=== PATIENT | female | born 1940 | race Caucasian/White ===

== ENCOUNTER → 2017-03-22 | Outpatient (CLI) | payer MEDICARE, OTHER ==
[~2017-03-22] MED LIST: REGADENOSON 0.4 MG/5 ML SYRINGE ONE
== END | disposition home or self-care (01) ==
LOC: CFH 07:52
PROVIDERS: ATTEND Internal Medicine Cardiovascular Disease
DX: I25.10 Atherosclerotic heart disease of native coronary artery without angina pectoris (principal); I10 Essential (primary) hypertension
CPT/HCPCS: 78452; 93017; A9502; J2785

== ENCOUNTER 2018-01-24 09:06 | Observation (INO) | payer MEDICARE, OTHER ==
[~2018-01-24] VITALS: Ht 161.3 cm; Wt 80.0 kg
[2018-01-24 09:53] LABS: BASOPHILS # (AUTO) 0.01 x10^3/uL (0-0.1); BASOPHILS % (AUTO) 0 % (0-1); EOSINOPHILS # (AUTO) 0.12 x10^3/uL (0-0.4); EOSINOPHILS % (AUTO) 2 % (1-7); LYMPHOCYTES # (AUTO) 1.15 x10^3/uL (1-3.4); LYMPHOCYTES % (AUTO) 15 % (22-44); MD NO; MEAN CORPUSCULAR HEMOGLOBIN 30.4 pg (27.0-34.8); MEAN CORPUSCULAR HGB CONC 33.7 g/dL (32.4-35.8); MEAN CORPUSCULAR VOLUME 90.1 fL (80-100); MONOCYTES % (AUTO) 9 % (2-9); NEUTROPHILS # (AUTO) 5.46 x10^3/uL (1.8-6.8); NEUTROPHILS % (AUTO) 73 % (42-75); PLATELET COUNT 172 x10^3/uL (130-400)
[2018-01-24] MEDS ORDERED: NITROGLYCERIN SINGLE TAB 0.4 MG SL PRN (10:00)
[2018-01-24] MEDS ORDERED: SODIUM CHLORIDE FLUSH 10ML SYR IVF ONE (10:00)
[2018-01-24] MEDS ORDERED: ASPIRIN 325 MG TABLET PO ONE (10:00)
[2018-01-24] MEDS ORDERED: ASPIRIN 81 MG TABLET CHEW PO ONE (10:00)
[2018-01-24 10:06] LABS: ALANINE AMINOTRANSFERASE 29 U/L (12-78); ALBUMIN 3.8 g/dL (3.4-5.0); ANION GAP 9 mmol/L (5-15); CALCIUM 8.6 mg/dL (8.5-10.1); CHLORIDE 105 mmol/L (98-107); CREATININE 1.24 mg/dL (0.55-1.02)
[2018-01-24] MEDS ORDERED: ATOR40TA78 PO (10:07)
[2018-01-24] MEDS ORDERED: POTA99TA24 PO (10:07)
[2018-01-24] MEDS ORDERED: DILT120T4 PO (10:07)
[2018-01-24] MEDS ORDERED: KRIL1CAP31 PO (10:07)
[2018-01-24] MEDS ORDERED: ATOR-2 PO (10:07)
[2018-01-24] MEDS ORDERED: ESOM40CA PO (10:07)
[2018-01-24] MEDS ORDERED: hydrodiuril PO (10:07)
[2018-01-24] MEDS ORDERED: HYDR-3307 PO (10:07)
[2018-01-24] MEDS ORDERED: CALC-534 PO (10:07)
[2018-01-24] MEDS ORDERED: BREX2TAB PO (10:07)
[2018-01-24] MEDS ORDERED: PREG50CA PO (10:07)
[2018-01-24] MEDS ORDERED: DESV100T PO (10:07)
[2018-01-24] MEDS ORDERED: l-thyroxine PO (10:07)
[2018-01-24] MEDS ORDERED: ASPI-496 PO (10:07)
[2018-01-24] MEDS ORDERED: TOPI25TA8 PO (10:07)
[2018-01-24] MEDS ORDERED: TOPI100P PO (10:07)
[2018-01-24 10:10] LABS: ALKALINE PHOSPHATASE 58 U/L (45-117); BILIRUBIN,TOTAL 0.4 mg/dL (0.2-1.0); TOTAL PROTEIN 7.8 g/dL (6.4-8.2); TROPONIN I < 0.015 ng/mL (0.000-0.045)
[2018-01-24] MEDS ORDERED: NITROGLYCERIN SINGLE TAB 0.4 MG SL ONE ×2 (10:13→11:19)
[2018-01-24] MEDS ORDERED: ASPIRIN 81 MG TABLET CHEW ONE ×2 (10:13→10:17)
[2018-01-24 10:22] LABS: INTERNATIONAL NORMALIZED RATIO 1.01 (0.93-1.1); PROTHROMBIN TIME 10.5 Seconds (9.6-11.5)
[2018-01-24 10:45] LABS: D-DIMER 0.53 ug/mlFEU (0.00-0.52)
[2018-01-24] MEDS ORDERED: OMNIPAQUE 350 MG/ML, 100ML BOTTLE ONE (12:20)
[2018-01-24] MEDS ORDERED: ONDANSETRON 2MG/ML, 2ML IVPush PRN (14:00)
[2018-01-24] MEDS ORDERED: HYDROcodone/APAP 5/325 TABLET PO PRN (14:00)
[2018-01-24] MEDS ORDERED: LABETALOL 5MG/ML, 20ML IVPush PRN (14:00)
[2018-01-24] MEDS ORDERED: POLYETHYLENE GLYCOL 17 GM PACKET PO PRN (14:00)
[2018-01-24] MEDS ORDERED: ONDANSETRON ODT 4 MG PO PRN (14:00)
[2018-01-24 14:37] LABS: TROPONIN I < 0.015 ng/mL (0.000-0.045)
[2018-01-24 14:40] LABS: FREE T4 (FREE THYROXINE) 1.16 ng/dL (0.76-1.46)
[2018-01-24 14:41] VITALS: BP 114/73
[2018-01-24] MEDS ORDERED: ENOXAPARIN 40 MG/0.4 ML SQ SCH (15:00)
[2018-01-24] MEDS ORDERED: CALC1CAP8 PO (15:02)
[2018-01-24] MEDS ORDERED: LEVO50TA5 PO (15:02)
[2018-01-24] MEDS ORDERED: POTA20TA14 PO (15:02)
[2018-01-24] MEDS ORDERED: ALBUTEROL/IPRATROPIUM 2.5MG/0.5MG, 3 ML ONE (17:26)
[2018-01-24] MEDS ORDERED: POTASSIUM CHLORIDE 20 MEQ TAB.ER.PRT PO SCH (18:00)
[2018-01-24] MEDS ORDERED: NITROGLYCERIN 0.4 MG BOTTLE (25 TABS) SL PRN ×2 (18:30→19:00)
[2018-01-24 18:40] VITALS: BP 111/56
[2018-01-24 18:50] VITALS: BP 96/60
[2018-01-24 18:59] VITALS: BP 119/67
[2018-01-24] MEDS ORDERED: NITROGLYCERIN 0.4 MG/SPRAY SL PRN (19:00)
[2018-01-24 20:15] LABS: TROPONIN I < 0.015 ng/mL (0.000-0.045)
[2018-01-24] MEDS ORDERED: TOPIRAMATE 25 MG TABLET PO SCH ×2 (21:00)
[2018-01-24] MEDS ORDERED: HYDROcodone/APAP 10/325 MG TABLET PO SCH (21:00)
[2018-01-24] MEDS ORDERED: PREGABALIN 25 MG CAPSULE PO SCH (21:00)
[2018-01-24] MEDS ORDERED: ASPIRIN 81 MG TABLET EC PO SCH (21:00)
[2018-01-24] MEDS ORDERED: ATORVASTATIN 40 MG TABLET PO SCH (21:00)
[2018-01-24] MEDS ORDERED: Desvenlafaxine Succinate** (Pristiq Er**) 100 MG) HOMEMEDPO SCH (21:00)
[2018-01-24] MEDS: TOPIRAMATE 25 MG TABLET PO SCH (21:51)
[2018-01-25 01:15] VITALS: BP 116/77
[2018-01-25 04:59] LABS: BASOPHILS # (AUTO) 0.03 x10^3/uL (0-0.1); BASOPHILS % (AUTO) 0 % (0-1); EOSINOPHILS # (AUTO) 0.18 x10^3/uL (0-0.4); EOSINOPHILS % (AUTO) 2 % (1-7); LYMPHOCYTES # (AUTO) 1.98 x10^3/uL (1-3.4); LYMPHOCYTES % (AUTO) 26 % (22-44); MD NO; MEAN CORPUSCULAR HEMOGLOBIN 30.4 pg (27.0-34.8); MEAN CORPUSCULAR HGB CONC 33.7 g/dL (32.4-35.8); MEAN CORPUSCULAR VOLUME 90.2 fL (80-100); MEAN PLATELET VOLUME 9.2 fL (7.4-10.4); MONOCYTES # (AUTO) 0.76 x10^3/uL (0.2-0.8); MONOCYTES % (AUTO) 10 % (2-9); NEUTROPHILS % (AUTO) 61 % (42-75); PLATELET COUNT 171 x10^3/uL (130-400); RED BLOOD COUNT 4.63 x10^6/uL (3.82-5.3); RED CELL DISTRIBUTION WIDTH 14.3 % (9.6-15.2)
[2018-01-25 05:11] LABS: ALBUMIN 3.6 g/dL (3.4-5.0); ANION GAP 7 mmol/L (5-15); CHLORIDE 107 mmol/L (98-107)
[2018-01-25 05:17] LABS: ALANINE AMINOTRANSFERASE 26 U/L (12-78); ALKALINE PHOSPHATASE 52 U/L (45-117); BILIRUBIN,TOTAL 0.4 mg/dL (0.2-1.0); CREATININE 1.18 mg/dL (0.55-1.02); TOTAL PROTEIN 7.1 g/dL (6.4-8.2)
[2018-01-25] MEDS ORDERED: LEVOTHYROXINE 25 MCG TABLET PO SCH (06:00)
[2018-01-25] MEDS ORDERED: LEVOTHYROXINE 50 MCG TABLET PO SCH (06:00)
[2018-01-25 06:41] VITALS: BP 127/80
[2018-01-25] MEDS ORDERED: PANTOPROZOLE 40MG TABLET PO SCH (07:30)
[2018-01-25] MEDS ORDERED: REGADENOSON 0.4 MG/5 ML SYRINGE ONE (07:33)
[2018-01-25] MEDS ORDERED: DILTIAZEM 120 MG TABLET PO SCH (09:00)
[2018-01-25] MEDS ORDERED: SENNA/DOCUSATE TABLET PO SCH (09:00)
[2018-01-25] MEDS ORDERED: HYDROcodone/APAP 10/325 MG TABLET PO SCH (09:00)
[2018-01-25] MEDS ORDERED: PREGABALIN 25 MG CAPSULE PO SCH (09:00)
[2018-01-25] MEDS ORDERED: HYDROCHLOROTHIAZIDE 25 MG TABLET PO SCH (09:00)
[2018-01-25] MEDS ORDERED: ASPIRIN 81 MG TABLET EC PO SCH (09:00)
[2018-01-25] MEDS ORDERED: DESVENLAFAXINE SUCCINATE 100 MG HOMEMEDPO SCH (09:00)
[2018-01-25] MEDS ORDERED: POTASSIUM CHLORIDE 20 MEQ TAB.ER.PRT PO SCH (10:00)
[2018-01-25] MEDS: TOPIRAMATE 25 MG TABLET PO SCH (10:08)
[2018-01-25] MEDS ORDERED: ASPI-496 PO (13:07)
[2018-01-25 13:08] VITALS: BP 103/68
[2018-01-25 13:39] LABS: CHOL/HDL RATIO 3.8; LDL/HDL RATIO 1.1 (0.5-3.0)
== END 2018-01-25 15:35 | disposition home or self-care (01) ==
LOC: ED 12:34 → INTOOBSV 12:40 → EDIP 12:40 → 5SO 14:14 → DCLOUNGE 01-25 15:25
PROVIDERS: ADMIT Hospitalist; ATTEND Hospitalist
DX: R07.9 Chest pain, unspecified (principal); I10 Essential (primary) hypertension; E03.9 Hypothyroidism, unspecified; F32.9 Major depressive disorder, single episode, unspecified; K21.9 Gastro-esophageal reflux disease without esophagitis; G62.9 Polyneuropathy, unspecified; R79.89 Other specified abnormal findings of blood chemistry; E87.6 Hypokalemia; G47.30 Sleep apnea, unspecified; E66.9 Obesity, unspecified; K44.9 Diaphragmatic hernia without obstruction or gangrene; R91.1 Solitary pulmonary nodule; Z80.3 Family history of malignant neoplasm of breast; Z81.8 Family history of other mental and behavioral disorders; Z82.49 Family history of ischemic heart disease and other diseases of the circulatory system; Z86.73 Personal history of transient ischemic attack (TIA), and cerebral infarction without residual deficits
CPT/HCPCS: 36415; 71045; 71275; 78452; 80053; 80061; 83735; 83880; 84100; 84439; 84484; 85025; 85379; 85610; 85730; 93005; 93017; 93306; 93971; 96372; 99285; A9502; C9898; G0378; J1650; J2785; Q9967

== ENCOUNTER → 2018-09-19 | Outpatient (CLI) | payer MEDICARE, OTHER ==
[~2018-09-19] MED LIST changes: +ASPI-496 PO; +ATOR-2 PO; +ATOR40TA78 PO; +BREX2TAB PO; +CALC-534 PO; +CALC1CAP8 PO; +DESV100T PO; +DILT120T4 PO; +ESOM40CA PO; +HYDR-3307 PO; +KRIL1CAP31 PO; +LEVO50TA5 PO; +POTA20TA14 PO; +POTA99TA24 PO; +PREG50CA PO; -REGADENOSON 0.4 MG/5 ML SYRINGE ONE; +TOPI100P PO; +TOPI25TA8 PO; +hydrodiuril PO; +l-thyroxine PO
[2018-09-19 12:50] LABS: ALANINE AMINOTRANSFERASE 34 U/L (12-78); ALBUMIN 3.8 g/dL (3.4-5.0); ANION GAP 8 mmol/L (5-15); CALCIUM 8.8 mg/dL (8.5-10.1); CHLORIDE 107 mmol/L (98-107); CHOLESTEROL, TOTAL 119 mg/dL (140-239); CREATININE 1.07 mg/dL (0.55-1.02)
[2018-09-19 12:52] LABS: ALKALINE PHOSPHATASE 79 U/L (45-117); BILIRUBIN,TOTAL 0.5 mg/dL (0.2-1.0); CHOL/HDL RATIO 4.6; HDL CHOL % 22 % (28-40); HDL CHOLESTEROL (DIRECT) 26 mg/dL (40-60); TOTAL PROTEIN 7.5 g/dL (6.4-8.2); TRIGLYCERIDES 197 mg/dL (50-200); VLDL CHOLESTEROL 39 mg/dL (0-25)
[2018-09-19 12:53] LABS: LDL CHOLESTEROL,CALCULATED 54 mg/dL (54-169); LDL/HDL RATIO 2.1 (0.5-3.0)
== END | disposition home or self-care (01) ==
LOC: CFH 09:44
PROVIDERS: ATTEND Internal Medicine Cardiovascular Disease
DX: E78.00 Pure hypercholesterolemia, unspecified (principal); E78.2 Mixed hyperlipidemia; I10 Essential (primary) hypertension
CPT/HCPCS: 36415; 80053; 80061

== ENCOUNTER → 2020-03-24 | Outpatient (CLI) | payer MEDICARE, OTHER ==
[~2020-03-24] MED LIST changes: -HYDR-3307 PO; +HYDR-36 PO; +REGADENOSON 0.4 MG/5 ML SYRINGE ONE
[2020-03-24 13:23] LABS: CHLORIDE 112 mmol/L (98-107)
[2020-03-24 13:32] LABS: ALANINE AMINOTRANSFERASE 36 U/L (12-78); ALBUMIN 4.1 g/dL (3.4-5.0); ALKALINE PHOSPHATASE 79 U/L (45-117); ANION GAP 7 mmol/L (5-15); BILIRUBIN,TOTAL 0.3 mg/dL (0.2-1.0); CALCIUM 9.4 mg/dL (8.5-10.1); CHOL/HDL RATIO 4.3; CHOLESTEROL, TOTAL 107 mg/dL (140-239); CREATININE 1.34 mg/dL (0.55-1.02); HDL CHOL % 23 % (28-40); HDL CHOLESTEROL (DIRECT) 25 mg/dL (40-60); LDL CHOLESTEROL,CALCULATED 34 mg/dL (54-169); LDL/HDL RATIO 1.4 (0.5-3.0); TRIGLYCERIDES 240 mg/dL (50-200); VLDL CHOLESTEROL 48 mg/dL (0-25)
== END | disposition home or self-care (01) ==
LOC: CFH 08:32
PROVIDERS: ATTEND Internal Medicine Cardiovascular Disease
DX: I25.10 Atherosclerotic heart disease of native coronary artery without angina pectoris (principal); E78.00 Pure hypercholesterolemia, unspecified; E78.2 Mixed hyperlipidemia; I10 Essential (primary) hypertension
CPT/HCPCS: 36415; 80053; 80061; J2785

== ENCOUNTER → 2020-03-25 | Outpatient (CLI) | payer MEDICARE, OTHER ==
[~2020-03-25] MED LIST changes: -REGADENOSON 0.4 MG/5 ML SYRINGE ONE
== END | disposition home or self-care (01) ==
LOC: CFH 08:33
PROVIDERS: ATTEND Internal Medicine Cardiovascular Disease
DX: I25.10 Atherosclerotic heart disease of native coronary artery without angina pectoris (principal)
CPT/HCPCS: 78452; 93017; A9502